=== PATIENT | male | born 1955 | race Caucasian/White ===

== ENCOUNTER 2023-02-28 10:39 | Day surgery (SDC) | payer MEDICARE ==
[~2023-02-28] VITALS: Ht 170.2 cm; Wt 63.4 kg
[~2023-02-28 10:39] MED LIST: ASPI81CH33 PO; FLON1SPR; LIDOCAINE 2% 100MG/5ML SDV (FOR ANES.) As Ordered ONE; NS 1,000 ML IV ONE; PRIL20TA2 PO; SYMB16INH INH; propofoL 200 MG/20 ML VIAL As Ordered ONE
[2023-02-28] MEDS ORDERED: fentaNYL 100 MCG/2 ML INJECTION As Ordered ONE (11:52)
[2023-02-28 13:10] VITALS: TEMP 97.2
[2023-02-28 13:30] VITALS: BP 103/61; O2SAT 96
== END 2023-02-28 13:51 | disposition home or self-care (01) ==
LOC: M OPP 10:39
PROVIDERS: ATTEND Internal Medicine Gastroenterology
DX: D12.4 Benign neoplasm of descending colon (principal); D12.5 Benign neoplasm of sigmoid colon; K62.89 Other specified diseases of anus and rectum; K64.8 Other hemorrhoids; K57.30 Diverticulosis of large intestine without perforation or abscess without bleeding; R19.5 Other fecal abnormalities; K22.89 Other specified disease of esophagus; K44.9 Diaphragmatic hernia without obstruction or gangrene; R12 Heartburn; Z87.891 Personal history of nicotine dependence; I34.9 Nonrheumatic mitral valve disorder, unspecified; Z79.51 Long term (current) use of inhaled steroids; Z79.82 Long term (current) use of aspirin; Z79.83 Long term (current) use of bisphosphonates
CPT/HCPCS: 43239; 45380; 45385; 88305; J3010